=== PATIENT | female | born 1990 | race Caucasian/White ===

== ENCOUNTER 2020-05-14 16:16 | Inpatient (IN) | payer MEDICAID, SELFPAY ==
[2020-05-14] VITALS (43 sets, daily range): BP systolic 0–147; BP diastolic 0–82; PULSE 71–137; RESP 16–20; TEMP 36.8–36.9; O2SAT 92–100; BMI 35.0
[2020-05-14] MEDS: dextrose 5%-lactated ringers 1,000 ML 125 ML IV (17:46)
[2020-05-14] MEDS: oxytocin 30 UNIT/500 ML BAG IV (17:46)
[2020-05-14 18:12] LABS: Basophils % 0.2 %; Eosinophils # 0.1 10^3/uL (0.0-0.8); Eosinophils % 1.1 %; Hematocrit 35.9 % (37.0-47.0); Lymphocytes # 1.9 10^3/uL (0.8-4.8); Lymphocytes % 29.7 %; Mean Corpuscular HGB Conc 33.4 g/dL (30.0-36.0); Mean Corpuscular Volume 95.7 fL (81-99); Mean Platelet Volume 10.9 fL (7.4-10.4); Monocytes # 0.4 10^3/uL (0.2-0.9); Monocytes % 6.5 %; Neutrophils # 3.92 10^3/uL (1.8-7.7); Neutrophils % 62.2 %; Nucleated Red Blood Cells % 0 %; Platelet Count 244 10^3/cmm (130-400); Red Blood Count 3.75 10^6/uL (4.1-5.3); Red Cell Distribution Width 12.4 % (12.1-15.1); White Blood Count 6.3 10^3/uL (4.0-10.0)
[2020-05-14] MEDS: fentaNYL 50 mcg/mL INJ 2mL IV ×2 (19:37→20:57)
[2020-05-14 19:43] LABS: Amphetamines Screen Urine Negative (Negative); Barbiturates Screen Urine Negative (Negative); Benzodiazepines Screen Urine Negative (Negative); Cocaine Screen Urine Negative (Negative); Opiate Screen Urine Negative (Negative); PCP Screen Urine Negative (Negative); THC Screen Urine Negative (Negative)
[2020-05-14] MEDS: lactated ringers 1,000 ML 999 ML IV ×2 (20:34→23:49)
--- NOTE | 2020-05-14 22:09 | P.ANESASSM_ITS ---
Pre-Anesthetic Assessment Pre-Anesthetic Assessment: Height/Weight: Height 1.52 m Weight 81.372 kg Temp Pulse Resp BP Pulse Ox 98.2 F 80 20 H 114/64 100 05/14/20 17:22 05/14/20 22:06 05/14/20 20:57 05/14/20 22:06 05/14/20 22:05 Preop Diagnosis: IUP Proposed Procedure: Labor epidural Familial anesthetic complications: denies Was Beta Panchito taken within 24 hours: N/A Last Intake: 09:00 Social: Social History: No alcohol and No tobacco Exam: Pre-Anes Outpt Exam: alert, oriented x 3 and clear to auscultation bilaterally Airway: Submandibular: WNL Cervical ROM: WNL MP: 1 Pulmonary: Pulmonary: None reported CV/HEM: CV/HEM: None reported : : None reported Hepatic: Hepatic: None reported GI: GI: GERD Metabolic: Metabolic: None reported Musc/skel: Musc/skel: None reported Neuropsych: Neuropsych: None reported Anesthetic Plan: ASA status: 2 Anesthesia: Anesthesia Evaluation and Eval. for regional block Meds/Allergies Current Medications: Current Medications Generic Name Dose Route Start Last Admin Trade Name Freq PRN Reason Stop Dose Admin Fentanyl 25 - 100 mcg 05/14/20 19:20 05/14/20 20:57 Sublimaze IV 50 mcg Q1H PRN Administration SEVERE PAIN Oxytocin 30 unit in 500 ml s @ 1 mls/hr 05/14/20 17:30 05/14/20 20:20 Pitocin IV 3 milliunit/min .Q24H MELL 3 mls/hr Titration Protocol 1 MILLIUNIT/MIN Dextrose/Lactated Ringer's 1,000 mls @ 125 m ls/hr 05/14/20 17:30 05/14/20 17:46 Dextrose 5%-Lact ated Ringers IV 125 mls/hr .Q8H MELL Administration PFSH Anesthesia Female Reproductive History: : 2 Data Anesthesia CBC & Chem 7: 05/14/20 17:00 Other Labs: Laboratory Results - last 48 hr 05/14/20 05/14/20 17:00 18:30 WBC 6.3 RBC 3.75 L Hgb 12.0 Hct 35.9 L MCV 95.7 MCH 32.0 MCHC 33.4 RDW 12.4 Plt Count 244 MPV 10.9 H Neut % (Auto) 62.2 Lymph % (Auto) 29.7 [place] % (Auto) 6.5 Eos % (Auto) 1.1 Baso % (Auto) 0.2 Neut # (Auto) 3.92 Lymph # (Auto) 1.9 [place] # (Auto) 0.4 Eos # (Auto) 0.1 Baso # (Auto) 0.0 Nucleated RBC % (auto) 0 Nucleated RBCs # 0.0 Urine Opiates Screen Negative Ur Barbiturates Screen Negative Ur Phencyclidine Scrn Negative Ur Amphetamines Screen Negative U Benzodiazepines Scrn Negative Urine Cocaine Screen Negative U Marijuana (THC) Screen Negative Cardiac Studies: No Data to Display Anesthesia Procedures Date of Procedure: 05/14/20 Epidural: Time Out Performed: Yes Consents Signed: Procedure Consent Consent: requested by attending/covering physician Lumbar Level: L3-L4 Epidural position: sitting Epidural procedure: sterile prep of area, 1% lidocaine to numb the area (3 cc ), 18 g needle (L3-L4 interspace), negative for paresthesia passed, neg for paresthesia, test dose given (3 cc ), 0.2% Ropivacaine bolus ml (8 cc ), placed PCEA, no systemic response, sterile dressin g applied and 0.2% Ropiavacaine @ mls/hr (11 mls / hr catheter 14 cm at skin ) Additional Comments: VSS see OBIX system
[2020-05-15] VITALS (22 sets, daily range): BP systolic 0–163; BP diastolic 0–108; PULSE 78–123; RESP 16–20; TEMP 36.4–37.1
--- NOTE | 2020-05-15 03:31 | PM.DELIVERY ---
Delivery Note: Date of delivery: May 15, 2020 this 29-year-old 2 now para 2 female with an EDC of 05/15/2020 had spontaneous rupture membranes at home approximately 330 the afternoon prior to admission. She arrived [facility] labor and delivery for evaluation and was found to have nitrazine positive fluid and irregular contractions. The patient was a known COVID positive patient as she was checked approximately 6 days prior to admission at [facility] and found to be positive for COVID. She was admitted to the negative pressure room for labor and delivery process. She was given Pitocin augmentation at low-dose Pitocin to facilitate labor. She dilated throughout the evening and night. She did receive epidural anesthesia with relief of pain. Overall, heart tones were reassuring with occasional decelerations. She dilated to complete cervical dilatation and was placed in delivery position. She pushed for probably an hour and a half prior to delivery of the infant at 03 10. The 's head was delivered in left occiput anterior position and mouth and nose were suctioned at the perineum. There was a nuchal cord x1 which was unwrapped. The shoulders were then delivered followed by the remainder of the without problems. There was no episiotomy and only a few small first-degree perineal and vaginal lacerations which did not require repair. The placenta delivered spontaneously and intact at approximately 315. The cried well at and was laid on mother's abdomen where after approximately 1 minute the umbilical cord was clamped and cut by the infant's father. The umbilical cord had 3 blood vessels. The infant weighed 7 pounds 8 ounces and had Apgars of 8 and 9 at 1 and 5 minutes respectively. There were no complications and estimated blood loss was approximately 132 mL. Pre-Delivery Course: This patient was followed by this physician throughout her course without major concerns or problems. Maternal blood type was A+ with antibody screen negative. Hepatitis B, hepatitis C, RPR and HIV were all negative. Rubella was immune and group B strep was negative. She was, however COVID positive. She was scheduled for induction on the day that she came in with ruptured membranes. However she was not able to get in until after her water broke. Delivery: Spontaneous vaginal delivery. Post-Delivery Status: Presently the patient is doing extremely well. She will remain in the negative pressure area for COVID isolation. A&P Assessment and plan (1) Normal spontaneous vaginal delivery: Patient did very well with delivery and will be followed for routine postdelivery care. Status: Acute (2) COVID-19 affecting childbirth: Patient has been asymptomatic through her COVID experience. She tested positive with PCR testing for COVID at [facility] approximately 6 days ago. We will continue isolation until post discharge. Status: Acute Coding Level of Care Code Acute Health And Human Performance Professor for Lisa Jerry Diagnoses Normal spontaneous vaginal delivery O80 COVID-19 affecting childbirth O98.52; U07.1
[2020-05-15] MEDS: benzocaine-menthol 78 gm Canister 1 SPRAY TOPICAL (05:20)
[2020-05-15] MEDS: HYDROcodone-acetaminophen 5-325 mg Tablet PO ×2 (05:21→10:58)
[2020-05-15] MEDS: docusate sodium 100 mg Capsule PO ×2 (08:46→18:07)
[2020-05-15] MEDS: prenatal vitamin Capsule 1 CAP PO (08:46)
--- NOTE | 2020-05-15 11:35 | ANE.PACU2 ---
Inpatient post-anesthesia follow up: Airway intact: Yes Vital signs: Temperature 97.8 F Pulse Rate 78 Respiratory Rate 17 Blood Pressure 124/68 Pulse Oximetry 100 Oxygen Delivery Me thod Room Air Oxygen Flow Rate Fraction of Inspir ed Oxygen Hydration adequate: Yes Nausea and vomiting: No Mental status: Baseline Additional Comments: no signs of infection at epidural site, no numbness/weakness of lower extremities, up and walking, no headaches, urinating ok without salazar
[2020-05-15 16:00] LABS: Hematocrit 31.6 % (37.0-47.0); Hemoglobin 10.4 g/dL (11.5-15.3); Mean Corpuscular HGB Conc 32.9 g/dL (30.0-36.0); Mean Corpuscular Hemoglobin 31.9 pg (28.0-34.0); Mean Corpuscular Volume 96.9 fL (81-99); Mean Platelet Volume 10.8 fL (7.4-10.4); Platelet Count 207 10^3/cmm (130-400); Red Blood Count 3.26 10^6/uL (4.1-5.3); Red Cell Distribution Width 12.7 % (12.1-15.1); White Blood Count 12.6 10^3/uL (4.0-10.0)
[2020-05-16 04:00] VITALS: BP 108/49; PULSE 79; RESP 16; TEMP 36.6
[2020-05-16] MEDS: prenatal vitamin Capsule 1 CAP PO (08:16)
[2020-05-16] MEDS: docusate sodium 100 mg Capsule PO (08:16)
--- NOTE | 2020-05-16 09:22 | PC.NURSE ---
note: This mom has had significant discomfort with . Latches appear to be full per staff observation. Staff tried using a nipple shield to decrease nipple pain without success. Mom has been bottle feeding formula since late last evening. Baby has a tight frenulum under his tongue, noted the heart shape tip of tongue as well. 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 Discussed these with mom, explaining how these are affecting the latch and nipple pain. Suggested she discuss this with Dr. Aragon and she could also look at [facility] in [place], [place], They specialize in tongue and lip tie. She needs no referral to go there. Also recommended she continue to hand express at least 8 times in 24 hours for 10 min each breast. Provided resources and literature to mom. Dr. Aragon notified of the above.
[2020-05-16 10:02] VITALS: BP 120/47; PULSE 72; RESP 16; TEMP 36.6
[2020-05-16] MEDS: HYDROcodone-acetaminophen 5-325 mg Tablet PO (10:22)
--- NOTE | 2020-05-16 10:23 | P.DS_ITS ---
Discharge Providers PLASTIC WORKER Date of Admission: 05/14/20 16:16 Date of Discharge: 05/16/20 Attending Provider at Admission: Joshua Aragon MD Attending Provider at Discharge: Joshua Aragon MD Primary Care Provider: Joshua Aragon MD Diagnoses at Discharge Discharge Diagnosis (1) Normal spontaneous vaginal delivery: Status: Acute Problem details: Patient has done well postdelivery. She is ambulating well and tolerating a regular diet. She has mild lochia without problems. She is felt to be stable for discharge. (2) COVID-19 affecting childbirth: Status: Acute Problem details: Patient continues to be asymptomatic and afebrile. She is stable for discharge and will continue isolation for a total of 14 days. Reason for Visit Reason for Visit: Leaking fluid Hospital Course Hospital Course: Patient has done well as described above. She is ambulating well and tolerating a regular diet. She has had some difficulty with breast- feeding secondary to infant tongue-tie but hopefully that will be improved with tongue clipping which has been accomplished. Information Peripartum Data: Infant Delivery Method: Vaginal Physical Exam Const: COMMON NORMALS: no acute distress and well nourished GENERAL APPEARANCE: well hydrated Resp: COMMON NORMALS: normal respiratory effort, No retractions, No use of accessory muscles and clear to auscultation bilaterally AUSCULTATION: clear to auscultation bilaterally Cardio: COMMON NORMALS: regular rate, regular rhythm and No murmurs present (Cardio) RATE: regular rate RHYTHM: regular rhythm GI: COMMON NORMALS: Normal to inspection, nondistended, normoactive bowel sounds present, Soft to palpation and non-tender (Fundus is firm.) PALPATION: Yes Soft to palpation : COMMON NORMALS: Yes no CVA tenderness BLADDER/KIDNEY EXAM: Yes no CVA tenderness Back/Pelvis: COMMON NORMALS: no CVA tenderness Extremity: COMMON NORMALS: normal to inspection, full ROM, no calf tenderness and no pedal edema Neuro: COMMON NORMALS: no focal motor deficits and no sensory deficits noted Psych: COMMON NORMALS: mental status grossly normal and Normal thought process present THOUGHT PROCESS: Normal thought process present Urinary Catheter Management^: Chavez Latex: Cath Placed During This Visit: yes Urinary Catheter Date of Insertion: 05/14/20 Urinary Catheter Time of Insertion: 22:35 Discharge Data Data Completed and Pending: Labs from last 24 hours 05/15/20 15:30 WBC 12.6 H RBC 3.26 L Hgb 10.4 L Hct 31.6 L MCV 96.9 MCH 31.9 MCHC 32.9 RDW 12.7 Plt Count 207 MPV 10.8 H Vitals: Last Vital Signs Temp 97.9 F 05/16/20 10:02 Pulse 72 05/16/20 10:02 Resp 16 05/16/20 10:02 BP 120/47 05/16/20 10:02 Pulse Ox 100 05/14/20 22:05 Discharge Plan Discharge Patient Disposition: Home Condition: Stable Prescriptions: New ibuprofen 800 mg Tablet 800 mg PO TID Qty: 90 RF: 2 Dermoplast (with menthol) 20-0.5 % Aerosol 1 spray topical PRN PRN (Reason: Pain) Qty: 120 RF: 0 docusate sodium 100 mg Capsule 100 mg PO BID Qty: 60 RF: 1 Lanolin (HPA) 100 % Cream 1 applic topical PRN PRN (Reason: Dryness) Qty: 120 RF: 1 Discharge Orders: Discharge Order (Routine); Ordered 05/16/20 Ordered By: Jsohua Aragon Referrals: Joshua Aragon MD [Primary Care Provider] - (Follow-up with Dr. Aragon in 6 weeks and as needed.) Discharge Diet: Usual diet Discharge Activity: Resume usual activity Patient Instructions: Depression (GEN), Perineal Care (DC), and the Working Mom (DC), Expression, Collection and Storage of Breastmilk (DC), and Nipple Soreness (DC), Breast Fullness Versus Breast Engorgement (DC), and Plugged Ducts (DC), How to Increase Your Milk Supply (DC), How to Tell if Your Baby is Getting Enough Breast Milk (DC), and Your Diet (DC), Bleeding (DC), OB Discharge Report, OB Care at Home, OB Vaginal Deliveries, Abnormal Bleeding Discharge Attestations PLASTIC WORKER Time Spent in Discharge Care*: less than 30 min Specific Discharge Activities: Specific discharge activities: educating patient, documenting/other paperwork and evaluating patient/reviewing data Status at Discharge: Cognitive status at discharge: cognitively intact , Coding Level of Care Code Acute Livestock Farmer for Chg Fwd Diagnoses Normal spontaneous vaginal delivery O80 COVID-19 affecting childbirth O98.52; U07.1
[2020-05-16 12:00] VITALS: BP 122/76; PULSE 70; RESP 16; TEMP 36.6
== END 2020-05-16 12:16 | disposition home or self-care (01) | DRG 805 ==
LOC: OPOB 16:34 → OBGYN 05-15 03:19
PROVIDERS: Admitting Provider Family Medicine; Family Provider Family Medicine; PCP Family Medicine; Visit Provider Family Medicine
DX: O98.52 Other viral diseases complicating childbirth (principal); U07.1 COVID-19; Z37.0 Single live birth; O69.2XX0 Labor and delivery complicated by other cord entanglement, with compression, not applicable or unspecified; Z3A.39 39 weeks gestation of pregnancy
CPT/HCPCS: 12345; 36415; 51702; 59025; 59409; 80306; 83986; 85025; 85027; 96374; 96375; 98960; 99211; J2795; J3010

== ENCOUNTER 2021-09-29 19:03 | Outpatient (CLI) | payer MEDICAID, SELFPAY ==
[2021-09-29] VITALS (10 sets, daily range): BP systolic 108–140; BP diastolic 53–75; PULSE 76–100; RESP 16; TEMP 35.7–36.1; BMI 34.4
[2021-09-29] MEDS: HYDROcodone-acetaminophen 5-325 mg Tablet 2 TAB PO (23:12)
== END 2021-09-29 23:15 | disposition home or self-care (01) ==
LOC: OPOB 19:03 → OBGYN 19:04
PROVIDERS: PCP Family Medicine; Visit Provider Family Medicine
DX: O26.899 Other specified pregnancy related conditions, unspecified trimester (principal); Z3A.00 Weeks of gestation of pregnancy not specified; R10.9 Unspecified abdominal pain
CPT/HCPCS: 59025; 99211

== ENCOUNTER → 2021-10-02 11:45 | Outpatient (BNVA) | payer MEDICAID, SELFPAY | PROVIDERS: PCP Family Medicine; Visit Provider Family Medicine | DX: Z01.812 Encounter for preprocedural laboratory examination (principal); Z20.822 Contact with and (suspected) exposure to COVID-19 | CPT/HCPCS: 87635 ==

== ENCOUNTER 2021-10-06 04:59 | Observation (INO) | payer MEDICAID, SELFPAY ==
[2021-10-06] VITALS (18 sets, daily range): BP systolic 112–134; BP diastolic 58–77; PULSE 73–120; TEMP 35.9; O2SAT 96–100; BMI 34.5
[2021-10-06 05:37] LABS: Basophils % 0.3 %; Eosinophils # 0.2 10^3/uL (0.0-0.8); Eosinophils % 2.3 %; Hematocrit 34.9 % (37.0-47.0); Hemoglobin 11.5 g/dL (11.5-15.3); Lymphocytes # 2.3 10^3/uL (0.8-4.8); Lymphocytes % 30.6 %; Mean Corpuscular Hemoglobin 31.3 pg (28.0-34.0); Mean Corpuscular Volume 94.8 fl (81-99); Mean Platelet Volume 10.6 fL (7.4-10.4); Monocytes # 0.5 10^3/uL (0.2-0.9); Monocytes % 6.8 %; Neutrophils # 4.52 10^3/uL (1.8-7.7); Neutrophils % 59.7 %; Nucleated Red Blood Cells % 0 %; Platelet Count 187 10^3/cmm (130-400); Red Blood Count 3.68 10^6/uL (4.1-5.3); Red Cell Distribution Width 13.6 % (12.1-15.1); White Blood Count 7.6 10^3/uL (4.0-10.0)
[2021-10-06 05:37] LABS: Amphetamines Screen Urine Negative (Negative); Barbiturates Screen Urine Negative (Negative); Benzodiazepines Screen Urine Negative (Negative); Cocaine Screen Urine Negative (Negative); Opiate Screen Urine Negative (Negative); PCP Screen Urine Negative (Negative); THC Screen Urine Negative (Negative)
[2021-10-06] MEDS: lactated ringers 1,000 ML 999 ML IV (06:07)
[2021-10-06] MEDS: terbutaline 1 mg/mL INJ 0.25 MG SUBCUT ×2 (06:32→07:21)
[2021-10-06] MEDS: ondansetron 2 mg/ML SDV 2 mL 4 MG IVP (07:45)
--- NOTE | 2021-10-06 07:50 | PM.OPHPUD ---
Labor & Delivery H&P Update Date of Procedure: October 06, 2021 Date H&P Performed: 10/02/21 Changes to previous documentation: None Admission Diagnosis: Preop diagnosis: IUP Primary indication for procedure: Breech presentation Planned procedure: Operation Date: 10/10/21 05:20 Proposed Procedures p Section(Not Applicable) - Rodney Zaragoza MD Other information: The patient is a 38-week estimated gestational age multigravida female who presents to the hospital the morning in order to attempt an external version. We have discussed the risks and benefits of attempting a an external version including the risk of abruption. She understands there is a significant chance that it will not succeed. She has no further questions. Related Problem List Diagnoses (1) Breech presentation: We will proceed with the external version. Anesthesia is immediately available. The patient has been given terbutaline. (2) 38 weeks gestation of :
--- NOTE | 2021-10-06 08:09 | PM.ACPR ---
Procedure/Consent Procedure Narrative: The patient was placed in a supine position in a labor bed. heart tones were established. An NST was performed and the patient was found to have reactive heart tones. A bedside ultrasound was performed that noted the was still in a breech position. Pressure was then placed on the buttock of the to push it downward and and away from the pubic bone. An effort was then made to roll the forward by pushing it down the left side of the mother. The infant made some changing positions but ultimately they were unable to complete the version. After trying for 5 minutes, while checking heart tones every 2 minutes, we then changed to attempt a backward somersault. Once again there was some shifting position of the infant but not enough for a version. We had attempted a front roll once again and were unsuccessful. At that point we elected to terminate the procedure. The baby was once again noted to have a reactive NST. The mother went home. We will proceed with a scheduled
== END 2021-10-06 08:21 | disposition home or self-care (01) ==
PROVIDERS: Admitting Provider Family Medicine; PCP Family Medicine; Visit Provider Family Medicine
DX: O32.1XX0 Maternal care for breech presentation, not applicable or unspecified (principal); Z3A.38 38 weeks gestation of pregnancy
CPT/HCPCS: 12345; 36415; 59025; 59412; 80306; 85025; 96372; 99211; G0378; G0379; J2405; J3105

== ENCOUNTER 2021-10-07 15:55 | Outpatient (CLI) | payer MEDICAID, SELFPAY ==
[2021-10-07 15:55] VITALS: BMI 34.5
[2021-10-07 16:45] VITALS: RESP 16
[2021-10-07 16:53] VITALS: BP 115/55; PULSE 81
[2021-10-07 16:54] LABS: Nitrazine Paper, PH Negative
[2021-10-07 16:56] VITALS: BP 115/55; PULSE 81
== END 2021-10-07 16:57 | disposition home or self-care (01) ==
LOC: OPOB 15:56 → OBGYN 15:58
PROVIDERS: PCP Family Medicine; Visit Provider Family Medicine
DX: O26.899 Other specified pregnancy related conditions, unspecified trimester (principal); Z3A.00 Weeks of gestation of pregnancy not specified; N89.8 Other specified noninflammatory disorders of vagina
CPT/HCPCS: 59025; 83986; 99211

== ENCOUNTER 2021-10-10 05:00 | Inpatient (IN) | payer MEDICAID, SELFPAY ==
[2021-10-10] VITALS (28 sets, daily range): BP systolic 91–121; BP diastolic 43–86; PULSE 60–99; RESP 15–18; TEMP 35.8–36.8; O2SAT 92–100; BMI 34.5
[2021-10-10 05:45] LABS: Basophils % 0.3 %; Eosinophils # 0.1 10^3/uL (0.0-0.8); Eosinophils % 1.5 %; Hematocrit 35.1 % (37.0-47.0); Hemoglobin 11.7 g/dL (11.5-15.3); Lymphocytes # 2.3 10^3/uL (0.8-4.8); Lymphocytes % 29.6 %; Mean Corpuscular HGB Conc 33.3 g/dL (30.0-36.0); Mean Corpuscular Hemoglobin 31.2 pg (28.0-34.0); Mean Corpuscular Volume 93.6 fl (81-99); Mean Platelet Volume 10.6 fL (7.4-10.4); Monocytes # 0.5 10^3/uL (0.2-0.9); Monocytes % 6.7 %; Neutrophils # 4.81 10^3/uL (1.8-7.7); Neutrophils % 61.6 %; Nucleated Red Blood Cells % 0 %; Platelet Count 195 10^3/cmm (130-400); Red Blood Count 3.75 10^6/uL (4.1-5.3); Red Cell Distribution Width 13.6 % (12.1-15.1); White Blood Count 7.8 10^3/uL (4.0-10.0)
[2021-10-10 06:08] LABS: Amphetamines Screen Urine Negative (Negative); Barbiturates Screen Urine Negative (Negative); Benzodiazepines Screen Urine Negative (Negative); Cocaine Screen Urine Negative (Negative); Opiate Screen Urine Negative (Negative); PCP Screen Urine Negative (Negative); THC Screen Urine Negative (Negative)
[2021-10-10] MEDS: famotidine 20 mg/2 mL INJ IVP (06:55)
[2021-10-10] MEDS: citric acid-sodium citrate 30 mL UDC PO (06:56)
--- NOTE | 2021-10-10 06:56 | P.HP_ITS ---
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 The patient has had an unremarkable otherwise. There have been no other complications or concerns. Present Details : 3 Para: 2 Labs Rubella: Immune RPR: Negative GBS: Negative Review of Systems General: Reports: 10 or more systems reviewed and unremarkable except in HPI and below Const: Reports: fatigue; Denies: fever(s) Eyes: Denies: change in vision Card: Denies: chest pain Musc: Reports: back pain Ashish/Lymph: Denies: easy bruising Medications/Allergies Home Medications Medication Instructions Recorded Confirmed Last Taken Type 1 tab PO DAILY 09/29/21 10/10/21 10/09/21 19:00 History acyclovir 400 mg tablet 400 mg PO DAILY 10/06/21 10/10/21 10/09/21 19:00 History hydrocortisone 2.5 % topical 1 applic TOPICAL PRN PRN 10/06/21 10/10/21 10/09/21 19:00 History ointment ondansetron HCl 4 mg tablet 4 mg PO TID PRN 10/06/21 10/10/21 10/10/21 04:00 History Allergies Allergy/AdvReac Type Severity Reaction Status Date / Time No Known Allergies Allergy Verified 10/10/21 06:06 Vitals/I&O/Wt Last Vital Signs Temp 96.4 F L 10/10/21 05:23 Pulse 80 10/10/21 06:53 Resp 15 10/10/21 05:08 BP 119/67 10/10/21 06:53 Pulse Ox 99 10/10/21 05:24 Weight last 48 hrs Weight 189 lb Physical Exam Const: COMMON NORMALS: patient oriented x3 and alert HENMT: COMMON NORMALS: moist oral mucous membranes HEAD & SCALP: normal to inspection Chest: COMMONS NORMALS: normal inspection of the chest Resp: COMMON NORMALS: clear to auscultation bilaterally AUSCULTATION: clear to auscultation bilaterally Cardio: COMMON NORMALS: regular rate and regular rhythm RATE: regular rate RHYTHM: regular rhythm GI: INSPECTION: Yes normal to inspection and Yes other (Gravid) Extremity: COMMON NORMALS: normal to inspection GENERAL: Yes edema (Trace) Neuro: COMMON NORMALS: patient oriented x3, moves all extremities and no sensory deficits noted SENSORIUM/ORIENTATION: Yes alert Psych: COMMON NORMALS: mental status grossly normal Skin: COMMON NORMALS: no rashes or lesions noted GENERAL SKIN EXAM: no rashes or lesions noted Data : 10/10/21 05:30 A&P Assessment and plan (1) 39 weeks gestation of : We will proceed with a repeat section. We did have a failed version earlier this week. I have discussed the risks of bleeding, infection, and damage intra-abdominal organs with the patient and her . They have no further questions and wished to proceed. Status: Acute (2) Breech presentation: Status: Acute Attestations Medical Necessity Statement*: Routine and post care Coding Level of Care Code Acute Fitness Floor Attendant for Chg Fwd Diagnoses 39 weeks gestation of Z3A.39 Breech presentation O32.1XX0
--- NOTE | 2021-10-10 06:56 | ANES.PREANE2 ---
Pre-Anesthetic Assessment Height/Weight: Height 1.57 m Weight 85.729 kg Temp Pulse Resp BP Pulse Ox 96.4 F L 80 15 119/67 99 10/10/21 05:23 10/10/21 06:53 10/10/21 05:08 10/10/21 06:53 10/10/21 05:24 Preop Diagnosis: IUP Operation Date: 10/10/21 07:00 Proposed Procedures p Section(Not Applicable) - Rodney Zaragoza MD Familial anesthetic complications: none Was Beta Panchito taken within 24 hours: N/A Was Clonidine taken within 24 hours: N/A Last Intake: 19:00 Social No alcohol and No tobacco Exam alert, oriented x 3, clear to auscultation bilaterally and regular rate & rhythm Airway Submandibular: within normal limits Cervical ROM: within normal limits Mallampati: Class II Dentition: other History/ROS No significant history except as noted and No significant complaints Pulmonary None reported CV/HEM None reported None reported Hepatic None reported GI None reported Metabolic None reported Musc/skel None reported Neuropsych None reported Anesthetic Plan ASA status: 2 Anesthesia: Anesthesia Evaluation and Regional (specify below) Risk of > 500 ml blood loss (7ml/kg in children): No Medications/Allergies Home Medications Medication Instructions Recorded Confirmed Last Taken Type 1 tab PO DAILY 09/29/21 10/10/21 10/09/21 19:00 History acyclovir 400 mg tablet 400 mg PO DAILY 10/06/21 10/10/21 10/09/21 19:00 History hydrocortisone 2.5 % topical 1 applic TOPICAL PRN PRN 10/06/21 10/10/21 10/09/21 19:00 History ointment ondansetron HCl 4 mg tablet 4 mg PO TID PRN 10/06/21 10/10/21 10/10/21 04:00 History Allergies Allergy/AdvReac Type Severity Reaction Status Date / Time No Known Allergies Allergy Verified 10/10/21 06:06 [facility] Anesthesia Female Reproductive History : 3 Data Anesthesia : 10/10/21 05:30 Short CBC 10/10/21 Range/Units 05:30 WBC 7.8 (4.0-10.0) 10^3/uL Hgb 11.7 (11.5-15.3) g/dL Hct 35.1 L (37.0-47.0) % MCV 93.6 (81-99) fl Plt Count 195 (130-400) 10^3/cmm Neut % (Auto) 61.6 % Neut # (Auto) 4.81 (1.8-7.7) 10^3/uL Cardiac Studies: No Data to Display
--- NOTE | 2021-10-10 08:17 | PM.OP ---
Operative Report Date of procedure: October 10, 2021 Pre-op diagnosis: 1. 39 weeks estimated gestational age 2. Breech presentation Post-op diagnosis: Same Procedure done: Low transverse section Specimens removed/disposition: 1. Male with a weight of 8 pounds 7 ounces and Apgars of 9 and 9 2. Placenta with a three-vessel cord delivered intact Pathology: None Surgeon: Rodney Zaragoza Anesthesia: Other (Spinal) Estimated blood loss: 600 Procedure: The patient was brought back to the operating room where she was prepped and draped in usual sterile fashion. Anesthesia was found to be adequate. A lower transverse skin incision was then made with a #10 blade. I then dissected down to the underlying subcutaneous tissue until arriving at the prerectal fascia. The fascia was then nicked with the scalpel bilaterally. The fascial incisions were then carried laterally with Muller scissors. Attention was then turned to the superior aspect of the incision which was grasped with kochers and tented up away from the underlying rectus abdominis muscles. The muscles were then dissected away from the fascia manually, and later with Muller scissors. Attention was then turned to the inferior aspect of the incision, and the fascia was dissected away from the underlying muscle in similar fashion. The rectus abdominis muscles were then spread manually. The peritoneum was entered manually. Excellent visualization of the uterus was noted. A lower transverse uterine incision was then made with a #10 blade. Upon arriving at the intrauterine cavity, the uterine incision was then extended manually. The infant was noted to be in a kanu breech position. The baby was delivered without difficulty. There was no meconium. There was no nuchal cord. The cord was cut and clamped. The baby was then handed to the waiting nurse. The placenta was removed intact. The uterus was externalized. The intrauterine cavity was cleansed of any remaining debris. The uterine incision was reapproximated in 2 layers. The first layer was performed with 0 Vicryl in a running locked stitch. The second layer was an imbricating stitch also using 0 Vicryl. The uterus was replaced into the abdomen. The peritoneum was then irrigated with warm saline. I reexamined the uterine incision and found it to be hemostatic. The rectus abdominis muscles were then reapproximated using 0 Vicryl in a running stitch. The fascia was then reapproximated using 0 Vicryl in running stitch. The subcutaneous tissue was reapproximated using 0 Vicryl in a running stitch. The skin was reapproximated using rodrigo. A sterile dressing was placed. All counts were correct x2. Both the mother and baby were in stable condition.
[2021-10-10] MEDS: dextrose 5%-lactated ringers 1,000 ML 125 ML IV ×2 (11:24→19:51)
[2021-10-10] MEDS: ondansetron 2 mg/ML SDV 2 mL 4 MG IVP ×2 (11:24→15:36)
[2021-10-10] MEDS: docusate sodium 100 mg Capsule PO ×2 (11:25→18:12)
--- NOTE | 2021-10-10 14:07 | PC.NURSE ---
Patient had an episode of vomiting. She was instructed to hold a pillow to her abdominal incision when vomiting or coughing to help with pain. She denies pain at this time. She is getting zofran per orders. She is sipping water and eating ice chips only at this time. She attempted to drink sprite but vomited with that. She has passed gas twice.
--- NOTE | 2021-10-10 15:12 | PC.NURSE ---
Patient ambulated from the bed to the end of the hallway and then started to feel nauseated again so we turned around and sat back down in bed. She reports the nausea is from not eating much and taking medicine as I always vomit with any medication I take if I do not eat with it. She is back in bed and resting at this time. She denies any other complaints at this time.
[2021-10-10] MEDS: lanolin oint 7 gm 1 APPLIC TOPICAL (15:36)
[2021-10-10] MEDS: ketorolac 30 mg/mL INJ IVP ×2 (15:36→22:21)
[2021-10-10] MEDS: metoclopramide 5 mg/mL SDV 2 mL 10 MG IVP (17:22)
[2021-10-10 20:50] LABS: Hematocrit 31.4 % (37.0-47.0); Hemoglobin 10.3 g/dL (11.5-15.3); Mean Corpuscular HGB Conc 32.8 g/dL (30.0-36.0); Mean Corpuscular Hemoglobin 31.2 pg (28.0-34.0); Mean Corpuscular Volume 95.2 fl (81-99); Mean Platelet Volume 10.8 fL (7.4-10.4); Platelet Count 180 10^3/cmm (130-400); Red Cell Distribution Width 13.4 % (12.1-15.1)
[2021-10-11] MEDS: diphenhydrAMINE 50 mg/mL SDV 1mL 25 MG IVP (01:56)
[2021-10-11] MEDS: HYDROcodone-acetaminophen 5-325 mg Tablet PO ×3 (02:46→13:29)
[2021-10-11 03:43] VITALS: BP 97/60; PULSE 71; RESP 16; TEMP 36.7
[2021-10-11] MEDS: ketorolac 30 mg/mL INJ IVP (04:57)
[2021-10-11] MEDS: prenatal vitamin Capsule 1 CAP PO (08:22)
[2021-10-11] MEDS: docusate sodium 100 mg Capsule PO (08:22)
[2021-10-11] MEDS: ferrous sulfate EC 325 mg Tablet PO (08:22)
[2021-10-11 08:25] VITALS: BP 78/45; PULSE 72; RESP 16; TEMP 36.4; O2SAT 98
[2021-10-11] MEDS: ibuprofen 800 mg tablet PO (09:13)
--- NOTE | 2021-10-11 10:00 | P.DS_ITS ---
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 The was unremarkable. She did have some issues with nausea and vomiting on the day of surgery. Otherwise her hospital stay was unremarkable. Her bleeding was within normal limits. Her pain was well controlled. She was passing gas the same day as a surgery. Her diet was advanced without difficulty. Information Peripartum Data: Delivery Method: Physical Exam Narrative: She is in no acute distress Lungs are clear auscultation bilaterally Her heart has a regular rate and rhythm Her fundus is below the umbilicus and firm Her incision is clean, dry and intact Her extremities have trace edema Urinary Catheter Management: Chavez Latex: Cath Placed During This Visit: yes, but has since been removed by the nurse Reason for Continuing Indwelling Catheter: Required Immobilization for Trauma or Surgery or Anesthesia Urinary Catheter Date of Insertion: 10/10/21 Urinary Catheter Time of Insertion: 07:15 Date Urinary Catheter Removed: 10/11/21 Time Urinary Catheter Discontinued: 03:10 Discharge Data Studies Completed and Pending Laboratory Results WBC 11.0 10^3/uL (4.0-10.0) H 10/10/21 20:35 RBC 3.30 10^6/uL (4.1-5.3) L 10/10/21 20:35 Hgb 10.3 g/dL (11.5-15.3) L 10/10/21 20:35 Hct 31.4 % (37.0-47.0) L 10/10/21 20:35 MCV 95.2 fl (81-99) 10/10/21 20:35 MCH 31.2 pg (28.0-34.0) 10/10/21 20:35 MCHC 32.8 g/dL (30.0-36.0) 10/10/21 20:35 RDW 13.4 % (12.1-15.1) 10/10/21 20:35 Plt Count 180 10^3/cmm (130-400) 10/10/21 20:35 MPV 10.8 fL (7.4-10.4) H 10/10/21 20:35 Neut % (Auto) 61.6 % 10/10/21 05:30 Lymph % (Auto) 29.6 % 10/10/21 05:30 [place] % (Auto) 6.7 % 10/10/21 05:30 Eos % (Auto) 1.5 % 10/10/21 05:30 Baso % (Auto) 0.3 % 10/10/21 05:30 Neut # (Auto) 4.81 10^3/uL (1.8-7.7) 10/10/21 05:30 Lymph # (Auto) 2.3 10^3/uL (0.8-4.8) 10/10/21 05:30 [place] # (Auto) 0.5 10^3/uL (0.2-0.9) 10/10/21 05:30 Eos # (Auto) 0.1 10^3/uL (0.0-0.8) 10/10/21 05:30 Baso # (Auto) 0.0 10^3/uL (0.0-0.1) 10/10/21 05:30 Nucleated RBC % (auto) 0 % 10/10/21 05:30 Nucleated RBCs # 0.0 /100WBC 10/10/21 05:30 Urine Opiates Screen Negative ng/mL (Negative) 10/10/21 05:30 Ur Barbiturates Screen Negative ng/mL (Negative) 10/10/21 05:30 Ur Phencyclidine Scrn Negative ng/mL (Negative) 10/10/21 05:30 Ur Amphetamines Screen Negative ng/mL (Negative) 10/10/21 05:30 U Benzodiazepines Scrn Negative ng/mL (Negative) 10/10/21 05:30 Urine Cocaine Screen Negative ng/mL (Negative) 10/10/21 05:30 U Marijuana (THC) Screen Negative ng/mL (Negative) 10/10/21 05:30 Vitals Last Vital Signs Temp 97.6 F 10/11/21 08:25 Pulse 72 10/11/21 08:25 Resp 16 10/11/21 08:25 BP 78/45 10/11/21 08:25 Pulse Ox 98 10/11/21 08:25 Discharge Plan Discharge Patient Disposition: Home Condition: Stable Prescriptions: New hydrocodone-acetaminophen 5-325 mg Tablet 1 tab PO Q6H PRN (Reason: Moderate To Severe Pain) Qty: 28 0RF ibuprofen 800 mg Tablet 800 mg PO TID Qty: 45 0RF docusate sodium 100 mg Capsule 100 mg PO BID Qty: 14 0RF Continued 1 tab PO DAILY 0RF ondansetron HCl 4 mg tablet 4 mg PO TID PRN (Reason: Nausea) 0RF hydrocortisone 2.5 % ointment 1 applic TOPICAL PRN PRN (Reason: Itching) 0RF Discontinued acyclovir 400 mg tablet 400 mg PO DAILY 0RF Discharge Orders: Discharge Order (Routine); Ordered 10/11/21 Ordered By: Rodney Zaragoza Referrals: Rodney Zaragoza MD [Physician] - 4-7 days Discharge Diet: Usual diet Discharge Activity: Limit activity as instructed Patient Instructions: Opioid Safety Discharge Attestations TENNIS 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
[2021-10-11 13:20] VITALS: BP 94/58; PULSE 78; RESP 16; TEMP 36.4
== END 2021-10-11 13:35 | disposition home or self-care (01) | DRG 788 ==
PROVIDERS: Admitting Provider Family Medicine; PCP Family Medicine; Visit Provider Family Medicine
PROC: (CPT 59514; principal; 2021-10-10 07:00)
DX: O34.219 Maternal care for unspecified type scar from previous cesarean delivery (principal); Z3A.39 39 weeks gestation of pregnancy; Z37.0 Single live birth; O32.1XX0 Maternal care for breech presentation, not applicable or unspecified
CPT/HCPCS: 12345; 36415; 51702; 59409; 80306; 85025; 85027; 96374; 96376; J1200; J1885; J2274; J2370; J2405; J2765; J3010; J3490

== ENCOUNTER → 2022-10-18 10:44 | Outpatient (BNVA) | payer MEDICAID, SELFPAY | PROVIDERS: PCP Family Medicine; Visit Provider Nurse Practitioner Family | DX: J02.9 Acute pharyngitis, unspecified (principal) | CPT/HCPCS: 87071; 87880 ==

== ENCOUNTER 2023-03-24 06:16 | Emergency (ER) | payer MEDICAID, SELFPAY ==
--- NOTE | 2023-03-24 06:19 | W.ED.FEVER ---
HPI - Fever General: Chief Complaint: Fever Stated Complaint: fever, sore throat Time Seen by Provider: 03/24/23 06:19 History of Present Illness: Ms Pretty is a 32-year-old lady presented the emergency department for generalized illness. She notes onset of symptoms yesterday with headache, fever, sore throat, mild nonproductive cough, generalized malaise. Since onset symptoms have become more intense. Moderate to severe in intensity. She has tried ibuprofen yesterday and NyQuil overnight with only mild transient relief. Daughter was treated for strep 5 days ago. No recent antibiotic use or other animal exposures to her knowledge. No other focal infectious symptoms. No other specific changes in health, exacerbating, or alleviating factors identified. Onset (ago): day(s) Context: sick contacts Associated symptoms: Reports cough, headache(s), myalgias and sore throat Review of Systems General: Reports: 10 or more systems reviewed and unremarkable except in HPI and below Neuro: Reports: headache(s) [facility] ED PFSH: Medical History (Updated 03/24/23 @ 07:56 by Erick Lama MD) No significant past medical history Surgical History (Updated 03/24/23 @ 07:56 by Erick Lama MD) Status post Physical Exam Const: COMMON NORMALS: alert GENERAL APPEARANCE: cooperative and well developed HENMT: COMMON NORMALS: normocephalic, atraumatic, external ears normal, EAC's normal and TM's normal bilaterally HEAD & SCALP: normocephalic and atraumatic EXTERNAL EAR: Yes external ears normal EXTERNAL AUDITORY CANAL: EAC's normal TYMPANIC MEMBRANE: TM's normal bilaterally OTHER: Posterior pharyngeal erythema, no exudates, no significant tonsillar hypertrophy, no evidence of anatomy distortion or deep infection. Eye: COMMON NORMALS: conjunctivae normal CONJUNCTIVA: Yes conjunctivae normal SCLERA: sclerae normal Neck/C-Spine: COMMON NORMALS: supple GENERAL: Yes trachea midline Resp: COMMON NORMALS: clear to auscultation bilaterally EFFORT & INSPECTION: Yes able to speak in complete sentences AUSCULTATION: clear to auscultation bilaterally Cardio: COMMON NORMALS: regular rate and regular rhythm RATE: regular rate RHYTHM: regular rhythm GI: COMMON NORMALS: Soft to palpation PALPATION: Yes Soft to palpation and No Tenderness to palpation present (GI) Extremity: GENERAL: Yes normal exam except as noted and No edema Neuro: COMMON NORMALS: moves all extremities SENSORIUM/ORIENTATION: Yes alert and No Orientation impaired Psych: COMMON NORMALS: mental status grossly normal and Normal thought process present THOUGHT PROCESS: Normal thought process present Course Vital Signs: Vital signs: Vital Signs Temperature 100.1 F H 03/24/23 06:33 Pulse Rate 88 03/24/23 06:33 Respiratory Rate 16 03/24/23 06:33 Blood Pressure 121/88 03/24/23 06:33 Pulse Oximetry 98 03/24/23 06:33 Oxygen Delivery Me thod Room Air 03/24/23 06:33 MDM - Fever Medical Decision Making 32-year-old lady presenting with upper respiratory symptoms. Mildly ill-appearing however nontoxic. Exam as above. No chest pain or shortness of breath, no supplemental oxygen requirement. Negative strep, negative flu, positive COVID which likely explains symptoms. Treated in ED with GI cocktail for cough/sore throat and Tylenol for fever. Appropriate for outpatient management. The results of ED evaluation were discussed with the patient including prescriptions and/or symptomatic cares (if applicable) including appropriate and responsible use, followup plan, and return precautions. The patient verbalized understanding and felt safe for discharge. Medical Records I reviewed the patient's medical records. Lab Data I reviewed the patient's lab results. Laboratory Results Influenza Type A Ag negative (Negative) 03/24/23 06:28 Influenza Type B Ag negative (Negative) 03/24/23 06:28 SARS-CoV-2 Ag (Rapid) positive (Negative) 03/24/23 06:28 Group A Strep Rapid Negative (Negative) 03/24/23 06:28 Discharge Plan Discharge Patient Disposition: Home Clinical Impression: COVID-19 Condition: Stable Prescriptions: New Paxlovid (EUA) 300 mg (150 mg x 2)-100 mg tablets,dose pack See Rx Instructions .ROUTE .COMPLEX Qty: 30 0RF Rx Instructions: orally per package directions Protonix 40 mg tablet,delayed release (DR/EC) 40 mg PO BID 14 Days Qty: 28 0RF ondansetron 4 mg tablet,disintegrating 4 mg PO Q8H PRN (Reason: nausea and vomiting) Qty: 15 0RF benzonatate 100 mg capsule 100 mg PO TID PRN (Reason: cough) Qty: 20 0RF No Action amoxicillin 875 mg tablet 875 mg PO BID 10 Days Qty: 20 0RF 1 tab PO DAILY ibuprofen 800 mg Tablet 800 mg PO TID Qty: 45 0RF hydrocodone-acetaminophen 5-325 mg Tablet 1 tab PO Q6H PRN (Reason: Moderate To Severe Pain) Qty: 28 0RF docusate sodium 100 mg Capsule 100 mg PO BID Qty: 14 0RF ondansetron HCl 4 mg tablet 4 mg PO TID PRN (Reason: Nausea) hydrocortisone 2.5 % ointment 1 applic TOPICAL PRN PRN (Reason: Itching) Discharge Orders: Discharge ED (Routine); Ordered 03/24/23 Ordered By: Erick Lama Referrals: Joshua Aragon MD [Primary Care Provider] - Discharge Diet: Usual diet Discharge Activity: Increase activity as tolerated Patient Instructions: COVID-19 (Coronavirus Disease 2019) (ED), How to Recover from COVID-19 at Home (ED) Activity Restrictions/Additional Instructions: Thank you for visiting the emergency department. You were seen and evaluated for generalized upper respiratory symptoms. The most likely cause of your symptoms is related to COVID-19. The treatment for this is supportive as discussed. I will prescribe medications for cough, nausea and vomiting, as well as antiviral. You may use [id number] medications such as acetaminophen and ibuprofen for pain however please do not exceed the daily recommended dosage as listed on the packaging and please keep in mind that many namebrand medications contain the same active ingredients. Please avoid these medications if previously instructed to do so by another physician due to other underlying medical condition. Please ensure that you are resting and staying hydrated. Return for uncontrolled symptoms or anything else that you are concerned about and feel needs emergency department evaluation. Coding Level of Care Code ED Patient Service Coordinator for Lisa Jerry
[2023-03-24 06:20] VITALS: BP 121/88; PULSE 107; RESP 18; TEMP 38.3; O2SAT 98; BMI 29.2
[2023-03-24 06:33] VITALS: BP 121/88; PULSE 88; RESP 16; TEMP 37.8; O2SAT 98
[2023-03-24] MEDS: acetaminophen 500 mg Tablet 1000 MG PO (06:38)
[2023-03-24] MEDS: aluminum-mag hydrox-simethicon 30 ML, sucralfate oral liq 1 GM PO (06:38)
[2023-03-24 06:48] LABS: Rapid Strep A Test Negative (Negative)
[2023-03-24 06:59] LABS: SARS Covid-2 Antigen positive (Negative)
[2023-03-24 07:00] LABS: Influenza A by IFA negative (Negative); Influenza B by IFA negative (Negative)
== END 2023-03-24 07:24 | disposition home or self-care (01) ==
PROVIDERS: Emergency Provider Emergency Medicine; PCP Family Medicine
DX: U07.1 COVID-19 (principal)
CPT/HCPCS: 87081; 87426; 87804; 87880; 99283